=== PATIENT | female | born 1985 | race Caucasian/White ===

== ENCOUNTER 2024-11-10 11:42 | Emergency (ER) | payer OTHER, SELFPAY ==
[2024-11-10 11:48] VITALS: BP 152/89
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
[2024-11-10] MEDS: ANTIVERT 25 MG PO (12:22)
[2024-11-10] MEDS: ZOFRAN ODT (ORALLY DISINTEGRATING) 4 MG PO (12:22)
[2024-11-10] MEDS: LIDOCAINE 4% PATCH 1 PATCH TOPICAL (15:13)
[2024-11-10] MEDS: TORADOL 30 MG IM (15:15)
[2024-11-10 15:25] VITALS: BP 144/82
== END 2024-11-10 15:39 | disposition home or self-care (01) ==
LOC: EMR 11:42
PROVIDERS: EMERGENCY PHYSICIAN Emergency Medicine; FAMILY PHYSICIAN Family Medicine
DX: S09.90XA Unspecified injury of head, initial encounter (principal); R11.2 Nausea with vomiting, unspecified; S39.012A Strain of muscle, fascia and tendon of lower back, initial encounter; Y04.8XXA Assault by other bodily force, initial encounter
CPT/HCPCS: 99284; 96372; 70450; 72110

== ENCOUNTER 2024-11-14 19:46 | Emergency (ER) | payer OTHER, SELFPAY ==
[2024-11-14 19:53] VITALS: BP 146/110
[2024-11-14 20:26] LABS: Hematocrit 31.8 % (37.0-47.0); Hemoglobin 9.9 g/dL (12.0-16.0); Mean Corp Hgb Conc. 31.1 g/dL (33.0-37.0); Mean Corpuscular Volume 75.7 fL (81.0-99.0); Nucleated Red Blood Cells % 0 %; Platelet Count 397 10^3/uL (130-400); Red Cell Dist. Width 17.9 % (11.5-14.5)
[2024-11-14 20:39] LABS: HCG, Serum Qualitative Screen Negative
[2024-11-14 20:44] LABS: ALT (SGPT) 19 U/L (0-35); AST (SGOT) 22 U/L (14-36); Albumin 4.2 g/dl (3.5-5.0); Alkaline Phosphatase 68 U/L (38-126); Blood Urea Nitrogen 14 mg/dl (7-17); Calcium 9.2 mg/dl (8.4-10.2); Carbon Dioxide 25 mmol/L (22-30); Chloride 106 mmol/L (98-107); Glucose 94 mg/dl (70-99); Potassium 4.8 mmol/L (3.5-5.1); Sodium 137 mmol/L (135-145); Total Protein 7.1 g/dl (6.3-8.2); eGFR > 60.00
== END 2024-11-15 00:19 | disposition left against medical advice (07) ==
LOC: EMR 19:46
PROVIDERS: EMERGENCY PHYSICIAN Emergency Medicine; FAMILY PHYSICIAN Family Medicine
DX: R42 Dizziness and giddiness (principal); Z53.21 Procedure and treatment not carried out due to patient leaving prior to being seen by health care provider
CPT/HCPCS: 80053; 84703; 85025